=== PATIENT | female | born 1960 | race Hispanic/Latino ===

== ENCOUNTER 2016-11-19 14:31 | Outpatient (CLI) | payer MEDICARE ==
--- NOTE | 2016-11-20 08:27 | XRay Report ---
XRAY LEFT HIP 2 VIEWS: 11/19/16 14:31:00 CLINICAL: Pain. FINDINGS: No fracture or dislocation. Mild arthritis of the left hip with superior acetabular eburnation and mild narrowing of the superior hip joint. Similar but less arthritic change in the right hip. The pelvic bones are intact except for small bilateral iliac enthesophytes. The SI joints are normal. Normal soft tissues. IMPRESSION: Mild osteoarthritis of the hips, left greater than right. Mild bilateral iliac enthesopathy.
== END 2016-11-19 14:32 | disposition home or self-care (01) ==
LOC: XRAY 14:31 → SPVIMAG 14:31 → XRAY 14:32
PROVIDERS: ATTEND Orthopaedic Surgery Sports Medicine
DX: M16.0 Bilateral primary osteoarthritis of hip (principal)